=== PATIENT | female | born 1960 | race American Indian/Alaskan Native ===

== ENCOUNTER 2016-10-24 07:32 | Outpatient (CLI) | payer BC ==
--- NOTE | 2016-10-24 09:20 | Mammography Report ---
Bilateral mammogram: Compared to 09/24/15. CAD study utilized. Findings: Predominance interstitial bilaterally. Benign densities right and left breast without definite interval change. New 4 mm circumscribed density upper posterior right breast. Impression: New density upper posterior right breast. Recommend spot mag since the last examination. BI-RADS CATEGORY: 0 = Needs additional imaging evaluation ACR BI-RADS MAMMOGRAPHIC CODES: 0 = Needs additional imaging evaluation; 1 = Negative; 2 = Benign; 3 = Probably benign; 4 = Suspicious; 5 = Malignant; 6 = Known biopsy-proven malignancy COMMENT: 1. Dense breast tissue, i.e., adenosis, fibrocystic changes, etc., may obscure an underlying neoplasm. 2. Approximately 10% of cancers are not detected with mammography. 3. A negative mammography report should not delay biopsy if a clinically suspicious mass is present. COMMENT: Patient follow-up letters are generated in [employer].
== END 2016-10-24 07:33 | disposition home or self-care (01) ==
LOC: MAMMO 07:32
PROVIDERS: ATTEND Internal Medicine
DX: Z12.31 Encounter for screening mammogram for malignant neoplasm of breast (principal)
CPT/HCPCS: 77067; G0202

== ENCOUNTER 2016-11-06 08:08 | Outpatient (CLI) | payer BC ==
--- NOTE | 2016-11-06 09:51 | Mammography Report ---
Diagnostic right mammogram and targeted right breast ultrasound. History: Nodular asymmetry in the upper-outer quadrant seen on recent screening study. Findings: A spot compression image in the area of interest demonstrates almost complete effacement of the asymmetric density. Sonographic evaluation of this area demonstrates no evidence of a cystic or solid lesion. Impression: No definite significant findings. BI-RADS code: 3. Recommendation: A repeat mammogram and possible ultrasound are recommended in 6 months.
== END 2016-11-06 08:09 | disposition home or self-care (01) ==
LOC: MAMMO 08:08
PROVIDERS: ATTEND Internal Medicine
DX: R92.8 Other abnormal and inconclusive findings on diagnostic imaging of breast (principal)
CPT/HCPCS: 76642; G0206

== ENCOUNTER 2017-05-14 09:03 | Outpatient (CLI) | payer BC ==
--- NOTE | 2017-05-14 09:52 | Mammography Report ---
RIGHT DIGITAL DIAGNOSTIC MAMMOGRAM with CAD: 05/14/17 09:03:00 CLINICAL: Follow-up asymmetry. COMPARISON:11/06/16 and 10/24/16 FINDINGS: The breast is predominantly fatty with a few stable benign-appearing right axillary lymph nodes. What was described as a nodular asymmetry in the upper-outer quadrant is a stable lymph node. No mass, architectural distortion or suspicious calcifications. IMPRESSION: No mammographic evidence of malignancy. BI-RADS CATEGORY: 2 - - Benign RECOMMENDATION: Return to routine mammographic screening. ACR BI-RADS MAMMOGRAPHIC CODES: 0 = Needs additional imaging evaluation; 1 = Negative; 2 = Benign; 3 = Probably benign; 4 = Suspicious; 5 = Malignant; 6 = Known biopsy-proven malignancy COMMENT: 1. Dense breast tissue, i.e., adenosis, fibrocystic changes, etc., may obscure an underlying neoplasm. 2. Approximately 10% of cancers are not detected with mammography. 3. A negative mammography report should not delay biopsy if a clinically suspicious mass is present. COMMENT: Patient follow-up letters are generated by our [email or web address] application.
== END 2017-05-14 09:04 | disposition home or self-care (01) ==
LOC: MAMMO 09:03
PROVIDERS: ATTEND Internal Medicine
DX: R92.8 Other abnormal and inconclusive findings on diagnostic imaging of breast (principal)
CPT/HCPCS: G0206-RT

== ENCOUNTER 2017-06-07 04:43 | Emergency (ER) | payer BC ==
[2017-06-07 04:49] VITALS: BP 151/74
[2017-06-07 06:01] LABS: Bacteria,Urine 1+ /HPF (Negative); Bilirubin,Urine NEG (Negative); Blood,Urine SM (Negative); Ketones,Urine NEG (Negative); Leukocyte Esterase,Urine LG (Negative); Mucus,Urine FEW /HPF; Nitrite,Urine NEG (Negative); Protein,Urine <15 mg/dL mg/dL (Negative); Urobilinogen,Urine < 2.0 mg/dL (<2.0)
[2017-06-07 06:08] LABS: WBC,Urine > 182.0 /HPF (0.0-6.0)
--- NOTE | 2017-06-07 06:18 | Emergency Department Report ---
ED Female HPI - General Chief complaint: Urogenital-Female Stated complaint: VAG D/C Time Seen by Provider: 06/07/17 05:38 Source: patient Mode of arrival: Ambulatory Limitations: No Limitations - History of Present Illness Initial comments: Patient states that she has had vaginal itching and irritation for the past week and it has worsened with time and is worse after urination; at onset of sxs , tried Monistat cream but it didn't help, so tried Monistat applicator yesterday but it didn't help either; also admits to noticing "cottage cheese" discharge; denies abdominal pain, N/V/D, dysuria, hematuria, changes in urinary frequency, fevers, and vaginal bleeding MD Complaint: vaginal discharge Onset/Timin -: week(s) Location: labia Radiation: non-radiating Severity: mild Severity scale (0 -10): 2 Quality: dull Consistency: intermittent Improves with: none Worsens with: urination Are you Now?: No Associated Symptoms: vaginal discharge. denies: vaginal bleeding, abdominal pain, nausea/vomiting, fever/chills, headaches, loss of appetite, dysuria, hematuria, rash, seizure, shortness of breath, syncope, weakness - Related Data Sexually active: Yes Home Medications Medication Instructions Recorded Confirmed Last Taken Bisoprolol/Hydrochlorothiazide 1 each PO DAILY 04/22/13 07/04/14 07/04/14 [Bisoprolol-Hctz 2.5-6.25 mg Tb] FLUoxetine [PROzac] 10 mg PO QDAY 04/22/13 07/04/14 07/03/14 Omeprazole [PriLOSEC] 10 mg PO DAILY 06/14/14 07/04/14 07/03/14 Previous Rx's Medication Instructions Recorded Last Taken Type Estradiol/Levonorgestrel [Climara 1 each TD 2XW #8 patch.tdwk 07/05/14 Unknown Rx Pro Patch] HYDROcodone/APAP 5-325 [[place] 2 each PO Q4H PRN #30 tablet 07/05/14 Unknown Rx 5-325 mg TAB] Ibuprofen [Motrin 800 MG tab] 800 mg PO Q8H PRN #30 tablet 07/05/14 Unknown Rx Clotrimazole [3-Day Vaginal Cream] 21 gm VG QHS #1 cream.appl 06/07/17 Unknown Rx Sulfamethoxazole/Trimethoprim 1 each PO BID #20 tablet 06/07/17 Unknown Rx [Bactrim DS TAB] Allergies Allergy/AdvReac Type Severity Reaction Status Date / Time No Known Allergies Allergy Verified 04/22/13 15:18 ED Review of Systems ROS: Stated complaint: VAG D/C Other details as noted in HPI Constitutional: denies: chills, fever Respiratory: denies: cough, shortness of breath, SOB with exertion, SOB at rest Cardiovascular: denies: chest pain, palpitations Gastrointestinal: denies: abdominal pain, nausea, vomiting, diarrhea, constipation, hematemesis, melena, hematochezia Genitourinary: discharge. denies: urgency, dysuria, frequency, hematuria, abnormal menses, dyspareunia Musculoskeletal: denies: back pain Skin: denies: rash Neurological: denies: headache, weakness ED Past Medical Hx - Past Medical History Hx Hypertension: Yes Hx Congestive Heart Failure: No Hx Diabetes: No Hx GERD: Yes (1999 RESOLVED WITH SURGERY 2000 RETURNED 2012) Hx Asthma: No Hx COPD: No Hx HIV: No Additional medical history: IBS, OBESITY - Surgical History Hx Cholecystectomy: Yes (2000) Additional Surgical History: Hysterectomy, LAP BAND, - Social History Smoking Status: Never Smoker Substance Use Type: None - Medications Home Medications: Home Medications Medication Instructions Recorded Confirmed Last Taken Type Bisoprolol/Hydrochlorothiazide 1 each PO DAILY 04/22/13 07/04/14 07/04/14 History [Bisoprolol-Hctz 2.5-6.25 mg Tb] FLUoxetine [PROzac] 10 mg PO QDAY 04/22/13 07/04/14 07/03/14 History Omeprazole [PriLOSEC] 10 mg PO DAILY 06/14/14 07/04/14 07/03/14 History Estradiol/Levonorgestrel [[place] 1 each TD 2XW #8 patch.tdwk 07/05/14 Unknown Rx Pro Patch] HYDROcodone/APAP 5-325 [[place] 2 each PO Q4H PRN #30 tablet 07/05/14 Unknown Rx 5-325 mg TAB] Ibuprofen [Motrin 800 MG tab] 800 mg PO Q8H PRN #30 tablet 07/05/14 Unknown Rx Clotrimazole [3-Day Vaginal Cream] 21 gm VG QHS #1 cream.appl 06/07/17 Unknown Rx Sulfamethoxazole/Trimethoprim 1 each PO BID #20 tablet 06/07/17 Unknown Rx [Bactrim DS TAB] ED Physical Exam - General Limitations: No Limitations General appearance: alert, in no apparent distress, obese - Head Head exam: Present: atraumatic, normocephalic, normal inspection - Respiratory Respiratory exam: Present: normal lung sounds bilaterally. Absent: respiratory distress, wheezes, rales, rhonchi, stridor - Cardiovascular Cardiovascular Exam: Present: regular rate, normal rhythm, normal heart sounds - GI/Abdominal GI/Abdominal exam: Present: soft. Absent: tenderness, guarding, rebound, rigid - External exam: Present: swelling (bilateral labia edematous, mildly TTP, no external bleeding), other (Senior Hydrogeologist present). Absent: lesions Speculum exam: Present: vaginal discharge (white, thick "cottage cheese-like" discharge present). Absent: erythema, cervical discharge, vaginal bleeding Bi-manual exam: Present: normal bi-manual exam. Absent: cervical motion tendernes, adnexal tenderness, adnexal mass, uterine enlargement, uterine tenderness - Neurological Exam Neurological exam: Present: alert, oriented X3, normal gait - Psychiatric Psychiatric exam: Present: normal affect, normal mood - Skin Skin exam: Present: warm, dry, intact, normal color, vesicles. Absent: rash, erythema ED Course Vital Signs 06/07/17 06/07/17 04:46 04:54 Temperature 98.1 F 98.1 F Pulse Rate 63 60 Respiratory 18 16 Rate Blood Pressure 151/74 151/74 O2 Sat by Pulse 97 97 Oximetry ED Medical Decision Making - Medical Decision Making Discussed results with patient; told her to complete the ABX, will culture urine , follow up with PCP if sxs don't improve, she verbalized understanding Critical care attestation.: If time is entered above; I have spent that time in minutes in the direct care of this critically ill patient, excluding procedure time. ED Disposition Clinical Impression: Urinary tract infection Qualifiers: Urinary tract infection type: acute cystitis Hematuria presence: with hematuria Qualified Code(s): N30.01 - Acute cystitis with hematuria Disposition: TO HOME OR SELFCARE Is pt being admited?: No Condition: Stable Instructions: Urinary Tract Infection in Women (ED), Vulvovaginal Candidiasis ( ED) Prescriptions: Clotrimazole [3-Day Vaginal Cream] 21 gm VG QHS #1 cream.appl Sulfamethoxazole/Trimethoprim [Bactrim DS TAB] 1 each PO BID #20 tablet Referrals: PRIMARY CARE, [Primary Care Provider] - 3-5 Days Time of Disposition: 07:26 Print Language: BELARUSIAN
== END 2017-06-07 07:43 | disposition home or self-care (01) ==
LOC: ED 04:43
DX: N30.01 Acute cystitis with hematuria (principal); I10 Essential (primary) hypertension; K21.9 Gastro-esophageal reflux disease without esophagitis
CPT/HCPCS: 81001; 87086; 87210; 87591; 99284

== ENCOUNTER 2017-10-26 07:36 | Outpatient (CLI) | payer BC ==
--- NOTE | 2017-10-27 13:45 | Mammography Report ---
BILATERAL DIGITAL SCREENING MAMMOGRAM with CAD: 10/26/17 07:36:00 CLINICAL: Routine screening. COMPARISON:10/24/16 FINDINGS: The breasts are almost entirely fatty. No mass, architectural distortion or suspicious calcifications. IMPRESSION: No mammographic evidence of malignancy. BI-RADS CATEGORY: 2 -- Benign RECOMMENDATION: Routine mammographic screening in one year. COMMENT: Patient follow-up letters are generated by our [employer] application.
== END 2017-10-26 07:37 | disposition home or self-care (01) ==
LOC: MAMMO 07:36
PROVIDERS: ATTEND Internal Medicine
DX: Z12.31 Encounter for screening mammogram for malignant neoplasm of breast (principal); I10 Essential (primary) hypertension
CPT/HCPCS: 77067

== ENCOUNTER 2019-04-01 08:25 | Outpatient (CLI) | payer BC ==
[2019-04-01 08:58] LABS: Basophils % (Auto) 0.5 % (0.0-1.8); Eosinophils # (Auto) 0.1 K/mm3 (0.0-0.4); Eosinophils % (Auto) 1.3 % (0.0-4.3); Hematocrit 37.1 % (30.3-42.9); Hemoglobin 12.3 gm/dl (10.1-14.3); Lymphocytes # (Auto) 2.7 K/mm3 (1.2-5.4); Lymphocytes % (Auto) 29.6 % (13.4-35.0); Mean Corpuscular HGB Conc 33 % (30-34); Mean Corpuscular Volume 83 fl (79-97); Monocytes # (Auto) 0.6 K/mm3 (0.0-0.8); Monocytes % (Auto) 6.9 % (0.0-7.3); Platelet Count 387 K/mm3 (140-440); Red Blood Count 4.49 M/mm3 (3.65-5.03); Red Cell Distribution Width 14.8 % (13.2-15.2)
[2019-04-01 09:18] LABS: Alanine Aminotransferase 19 units/L (7-56); Albumin 3.8 g/dL (3.9-5); BUN/Creatinine Ratio 20; Blood Urea Nitrogen 14 mg/dL (7-17); Calcium 9.3 mg/dL (8.4-10.2); Chol/HDL Ratio 2.21 %; HDL Cholesterol 71 mg/dL (40-59); Hemolysis Index 5; LDL Cholesterol,Direct 94 mg/dL (50-130)
== END 2019-04-01 08:26 | disposition home or self-care (01) ==
LOC: LAB 08:25
PROVIDERS: ATTEND Internal Medicine
DX: Z13.220 Encounter for screening for lipoid disorders (principal); I10 Essential (primary) hypertension; K21.9 Gastro-esophageal reflux disease without esophagitis; F32.9 Major depressive disorder, single episode, unspecified
CPT/HCPCS: 36415; 80053; 80061; 85025

== ENCOUNTER 2019-04-12 08:10 | Outpatient (CLI) | payer BC ==
--- NOTE | 2019-04-12 14:45 | Mammography Report ---
DIGITAL SCREENING MAMMOGRAM WITH CAD, 04/12/2019 INDICATION: Routine screening mammography. TECHNIQUE: Digital bilateral 2D mammography was obtained in the craniocaudal and mediolateral obliq ue projections. This examination was interpreted with the benefit of Computer-Aided Detection analysi s. COMPARISON: 10/26/2017 FINDINGS: Breast Density: There are scattered areas of fibroglandular density. There is no evidence of dominant mass, suspicious calcifications or architectural distortion in eithe r breast. IMPRESSION: No mammographic evidence of malignancy. Follow up recommendation: Routine yearly BI-RADS Category 1: Negative. A "normal" or negative report should not discourage follow up or biopsy of a clinically significant f inding. A written summary of these findings will be mailed to the patient. The patient will be entered into a mammography reporting system which will generate a reminder letter for the patient's next appointmen t at the appropriate interval. The [employer] recommends yearly mammograms starting at age 40 and continuing as l adam as a woman is in good health. Breast MRI is recommended for women with an approximate 20-25% or greater lifetime risk of breast cancer, including women with a strong family history of breast or ova keven cancer or who have been treated for Hodgkin's disease. Signer Name: Mohsen Diop MD Signed: 04/12/2019 2:40 PM Workstation Name: [id number]
--- NOTE | 2019-04-12 16:25 | Mammography Report ---
BONE DEXA CLINICAL: Postmenopausal. Status post LAP band procedure. TECHNIQUE: 2 site bone DEXA performed on an Hologic scanner. The lumbar spine was not scanned because of the LAP band producing opacity over the L-spine. FINDINGS: The average BMD of the right hip is 0.904g/cm squared with a T score of -0.3 and a Z score of -0.2. The average total BMD of the right forearm is 0.591 g/cm squared with a T score of +0.5and a Z score of +1.6. IMPRESSION: 1. WHO classification: Normal with average fracture risk based on right hip and right forearm measure ments. RECOMMENDATION: Clinical correlation and routine screening. Definitions: BMD equal bone mineral density T score = BMD related to peak bone mass of young adult ([place] expressed an standard deviation) Z score = age-matched BMD expressed in SD World health organization (WHO) diagnostic criteria Normal T score greater than equal to 1 standard deviation Osteopenia T score between -1 and -2.4 standard deviation Osteoporosis T score -2.5 standard deviation or below. Note: BMD is not the only risk factor for fracture; also consider factors such as the patient's age, risk of falling, previous osteoporotic fracture, family history of osteoporotic fractures, current sm oker and low body weight. Z scores are not calculated if greater than 80 years of age. Signer Name: Mohsen Diop MD Signed: 04/12/2019 4:20 PM Workstation Name: [id number]
== END 2019-04-12 08:11 | disposition home or self-care (01) ==
LOC: MAMMO 08:10
PROVIDERS: ATTEND Internal Medicine
DX: Z12.31 Encounter for screening mammogram for malignant neoplasm of breast (principal); I10 Essential (primary) hypertension; K21.9 Gastro-esophageal reflux disease without esophagitis; E66.9 Obesity, unspecified; Z78.0 Asymptomatic menopausal state; Z90.710 Acquired absence of both cervix and uterus
CPT/HCPCS: 77067; 77080

== ENCOUNTER 2019-09-02 06:53 | Outpatient (CLI) | payer BC ==
--- NOTE | 2019-09-02 08:50 | Fluoroscopy Report ---
UPPER GI HISTORY: BARIATRIC SURGERY STATUS. Gastroesophageal reflux, bloating TECHNIQUE: Single and double contrast barium technique utilized to evaluate the esophagus, stomach, and duodenal C-loop. FINDINGS: To begin the exam, swallowing was evaluated in the lateral position under direct fluorosco py. Swallowing was normal. The esophagus is normal caliber and mucosal pattern throughout. There is no evidence for mucosal lesi on or hiatal hernia. There did appear to be delayed emptying of the esophagus with occasional tertiar y contractions. This did not appear to be secondary to the lap band device. A lap band device is noted in the left upper quadrant and appears in good position. There is easy pa ssage of the contrast agent through the lap band. The gastric cavity, duodenal bulb and duodenal swee p are normal. No episodes of gastroesophageal reflux were witnessed during this exam. There did appea r to be decreased gastric motility. IMPRESSION: A lap band appears in good position with no evidence for slippage or erosion. Dysmotilit y was suspected throughout this exam. Occasional tertiary contractions in the esophagus and poor shyann skye motility was witnessed. No episodes of reflux were witnessed. Fluoroscopic time: 2.3 minutes Number of fluoroscopic images: 34 Signer Name: Guille Plummer Jr, MD Signed: 09/02/2019 8:46 AM Workstation Name: [id number]
== END 2019-09-02 06:54 | disposition home or self-care (01) ==
LOC: FLUORO 06:53
PROVIDERS: ATTEND Surgery
DX: Z98.84 Bariatric surgery status (principal)
CPT/HCPCS: 74246

== ENCOUNTER 2020-02-15 06:06 | Outpatient (CLI) | payer BC ==
[2020-02-15 07:25] LABS: Basophils % (Auto) 0.4 % (0.0-1.8); Eosinophils # (Auto) 0.1 K/mm3 (0.0-0.4); Eosinophils % (Auto) 1.2 % (0.0-4.3); Hematocrit 37.6 % (30.3-42.9); Hemoglobin 12.1 gm/dl (10.1-14.3); Lymphocytes % (Auto) 28.1 % (13.4-35.0); Mean Corpuscular HGB Conc 32 % (30-34); Mean Corpuscular Volume 88 fl (79-97); Monocytes # (Auto) 0.5 K/mm3 (0.0-0.8); Monocytes % (Auto) 6.6 % (0.0-7.3); Platelet Count 363 K/mm3 (140-440); Red Blood Count 4.29 M/mm3 (3.65-5.03); Red Cell Distribution Width 15.8 % (13.2-15.2)
[2020-02-15 07:54] LABS: Alanine Aminotransferase 14 units/L (7-56); Albumin 3.7 g/dL (3.9-5); BUN/Creatinine Ratio 21; Blood Urea Nitrogen 15 mg/dL (7-17); Calcium 9.2 mg/dL (8.4-10.2); Chol/HDL Ratio 2.54 %; HDL Cholesterol 68 mg/dL (40-59); Hemolysis Index 22; LDL Cholesterol,Direct 98 mg/dL (50-130)
== END 2020-02-15 06:07 | disposition home or self-care (01) ==
LOC: LAB 06:06
PROVIDERS: ATTEND Internal Medicine
DX: F32.9 Major depressive disorder, single episode, unspecified (principal); I10 Essential (primary) hypertension
CPT/HCPCS: 36415; 80053; 80061; 84443; 85025

== ENCOUNTER 2020-06-07 11:31 | Outpatient (CLI) | payer BC ==
--- NOTE | 2020-06-07 15:35 | Mammography Report ---
DIGITAL SCREENING MAMMOGRAM WITH CAD, 06/07/2020 CLINICAL INFORMATION / INDICATION: Routine screening mammography. TECHNIQUE: Digital bilateral 2D mammography was obtained in the craniocaudal and mediolateral obliqu e projections. This examination was interpreted with the benefit of Computer-Aided Detection analysis . COMPARISON: 04/12/2019 FINDINGS: Breast Density: There are scattered areas of fibroglandular density. No dominant mass, suspicious calcifications, or architectural distortion in either breast. IMPRESSION: No mammographic evidence of malignancy. Follow up recommendation: Routine yearly BI-RADS Category 1: Negative. A "normal" or negative report should not discourage follow up or biopsy of a clinically significant f inding. A written summary of these findings will be mailed to the patient. The patient will be entered into a mammography reporting system which will generate a reminder letter for the patient's next appointmen t at the appropriate interval. The [employer] recommends yearly mammograms starting at age 40 and continuing as l adam as a woman is in good health. Breast MRI is recommended for women with an approximate 20-25% or greater lifetime risk of breast cancer, including women with a strong family history of breast or ova keven cancer or who have been treated for Hodgkin's disease. Signer Name: Louie Harper MD Signed: 06/07/2020 3:31 PM Workstation Name: [id number]
== END 2020-06-07 11:32 | disposition home or self-care (01) ==
LOC: MAMMO 11:31
PROVIDERS: ATTEND Internal Medicine
DX: Z12.31 Encounter for screening mammogram for malignant neoplasm of breast (principal)
CPT/HCPCS: 77067

== ENCOUNTER 2020-12-04 07:05 | Day surgery (SDC) | payer BC ==
[2020-12-04 09:38] VITALS: BP 133/69
== END 2020-12-04 07:06 | disposition home or self-care (01) ==
LOC: GIO 07:05
PROVIDERS: ATTEND Internal Medicine Gastroenterology
DX: Z12.11 Encounter for screening for malignant neoplasm of colon (principal); K57.30 Diverticulosis of large intestine without perforation or abscess without bleeding; I10 Essential (primary) hypertension; K21.9 Gastro-esophageal reflux disease without esophagitis; E66.01 Morbid (severe) obesity due to excess calories; E66.9 Obesity, unspecified; F32.9 Major depressive disorder, single episode, unspecified; Z79.899 Other long term (current) drug therapy; Z90.49 Acquired absence of other specified parts of digestive tract; Z90.710 Acquired absence of both cervix and uterus; Z98.890 Other specified postprocedural states
CPT/HCPCS: 45378; J2704; J7030

== ENCOUNTER 2021-06-28 05:51 | Outpatient (CLI) | payer BC | END 2021-06-28 05:52 | disposition home or self-care (01) | LOC: MAMMO 05:51 | PROVIDERS: ATTEND Internal Medicine | DX: Z12.31 Encounter for screening mammogram for malignant neoplasm of breast (principal) | CPT/HCPCS: 77067 ==

== ENCOUNTER 2021-09-17 06:00 | Outpatient (CLI) | payer BC ==
[2021-09-17 07:11] LABS: Basophils # (Auto) 0.1 K/mm3 (0.0-0.1); Basophils % (Auto) 0.7 % (0.0-1.8); Eosinophils # (Auto) 0.1 K/mm3 (0.0-0.4); Eosinophils % (Auto) 1.6 % (0.0-4.3); Hematocrit 36.1 % (30.3-42.9); Hemoglobin 11.7 gm/dl (10.1-14.3); Lymphocytes % (Auto) 25.6 % (13.4-35.0); Mean Corpuscular HGB Conc 32 % (30-34); Mean Corpuscular Volume 81 fl (79-97); Monocytes # (Auto) 0.5 K/mm3 (0.0-0.8); Monocytes % (Auto) 5.8 % (0.0-7.3); Platelet Count 411 K/mm3 (140-440); Red Blood Count 4.44 M/mm3 (3.65-5.03); Red Cell Distribution Width 15.3 % (13.2-15.2)
[2021-09-17 07:25] LABS: Alanine Aminotransferase 12 units/L (7-56); Blood Urea Nitrogen 18 mg/dL (7-17); Calcium 9.5 mg/dL (8.4-10.2); Chol/HDL Ratio 2.33 %; HDL Cholesterol 81 mg/dL (40-59); Hemolysis Index 22; LDL Cholesterol,Direct 106 mg/dL (50-130)
[2021-09-17 07:30] LABS: BUN/Creatinine Ratio 26
== END 2021-09-17 06:01 | disposition home or self-care (01) ==
LOC: LAB 06:00
PROVIDERS: ATTEND Internal Medicine
DX: I10 Essential (primary) hypertension (principal)
CPT/HCPCS: 36415; 80053; 80061; 85025

== ENCOUNTER 2021-10-18 11:19 | Outpatient (CLI) | payer BC ==
--- NOTE | 2021-10-18 14:42 | Cat Scan Report ---
CT ABDOMEN AND PELVIS WITH CONTRAST HISTORY: R10.30 LOWER ABDOMINAL PAIN,UNSPECIFIED OMNI 300 100 ML. COMPARISON: None. TECHNIQUE: CT images of the abdomen and pelvis were obtained following administration of intravenous contrast. All CT scans at this location are performed using CT dose reduction for ALARA by means of automated exposure control. CONTRAST: 100 ml of intravenous contrast administered. FINDINGS: Lungs/bones: Lung bases are clear Abdomen/pelvis: There is diffuse fatty infiltration the liver. Spleen, adrenal glands, pancreas and upper GI tract appear normal. Postsurgical changes and upper GI tract. Prior cholecystectomy. Bilater al kidneys are normal in size and appearance. Small (devices seen overlying the umbilical region with tube extending into the left lower abdomen. Appendix appears normal. Constipation seen throughout th e colon. No free fluid is seen. No dominant adenopathy IMPRESSION: 1. Fatty infiltration the liver. 2. Postsurgical changes in the upper GI tract 3. Constipation Signer Name: Don Lange MD Signed: 10/18/2021 2:37 PM Workstation Name: [id number]
== END 2021-10-18 11:20 | disposition home or self-care (01) ==
LOC: CT 11:19
PROVIDERS: ATTEND Surgery
DX: K76.0 Fatty (change of) liver, not elsewhere classified (principal); K59.00 Constipation, unspecified; Z90.49 Acquired absence of other specified parts of digestive tract
CPT/HCPCS: 74177; Q9967

== ENCOUNTER 2022-01-23 13:09 | Outpatient (CLI) | payer BC ==
--- NOTE | 2022-01-23 14:39 | Magnetic Resonance Report ---
MRI LEFT ANKLE WITHOUT CONTRAST INDICATION / CLINICAL INFORMATION: EVAL LEFT ACHILLES TENDON. Ankle pain. TECHNIQUE: Multiplanar, multisequence MR images were obtained. No contrast used. COMPARISON: None available. FINDINGS: ACHILLES TENDON: Mild Achilles tendinosis and peritendinitis with edema in the pre-Achilles fat pad. No tear. PLANTAR FASCIA: Mild plantar fasciosis without acute inflammation. POSTERIOR TIBIAL / FLEXOR TENDONS: No significant abnormality. PERONEAL TENDONS: No significant abnormality. ANTERIOR TIBIAL / EXTENSOR TENDONS: No significant abnormality. ANTERIOR TALOFIBULAR LIGAMENT: Chronic sprain without acute abnormality. CALCANEOFIBULAR LIGAMENT: No significant abnormality. TIBIOFIBULAR LIGAMENTS: No significant abnormality. INTEROSSEOUS LIGAMENT / MEMBRANE: No significant abnormality. DELTOID LIGAMENTS: No significant abnormality. SPRING LIGAMENT COMPLEX: No significant abnormality. TIBIOTALAR JOINT SPACE: No chondrosis or articular cartilage defect. No significant joint effusion or synovitis. No intra-articular bodies. SUBTALAR JOINTS: No significant abnormality. SINUS TARSI: No significant abnormality. TARSAL TUNNEL: No significant abnormality. BONES / OTHER JOINTS: No significant bone marrow edema. No fracture. Mildly prominent posterior super ior process of the calcaneus. SOFT TISSUES: No significant abnormality. ADDITIONAL FINDINGS: None. IMPRESSION: 1. Mild Achilles tendinosis and peritendinitis with mild Belle deformity. No tendon tear. Signer Name: Anil Martin MD Signed: 01/23/2022 2:34 PM Workstation Name: [email or web address]
== END 2022-01-23 13:10 | disposition home or self-care (01) ==
LOC: MRI 13:09
PROVIDERS: ATTEND Orthopaedic Surgery Sports Medicine
DX: S93.492A Sprain of other ligament of left ankle, initial encounter (principal); M76.62 Achilles tendinitis, left leg; X58.XXXA Exposure to other specified factors, initial encounter; Y93.89 Activity, other specified; Y92.89 Other specified places as the place of occurrence of the external cause; Y99.8 Other external cause status
CPT/HCPCS: 73721

== ENCOUNTER 2022-04-17 09:12 | Emergency (ER) | payer BC ==
--- NOTE | 2022-04-17 11:03 | XRay Report ---
CHEST 1 VIEW 04/17/2022 10:58 AM INDICATION / CLINICAL INFORMATION: chest pain, sob. COMPARISON: 05/24/2018 FINDINGS: SUPPORT DEVICES: None. HEART / MEDIASTINUM: No significant abnormality. LUNGS / PLEURA: No significant pulmonary or pleural abnormality. No pneumothorax. ADDITIONAL FINDINGS: No significant additional findings. IMPRESSION: 1. No acute findings. Signer Name: Guille Plummer Jr, MD Signed: 04/17/2022 10:58 AM Workstation Name: [id number]
[2022-04-17 12:49] LABS: Blood Urea Nitrogen 15 mg/dL (7-17); Hemolysis Index 6
[2022-04-17 12:50] LABS: Hematocrit 39.6 % (30.3-42.9); Hemoglobin 12.6 gm/dl (10.1-14.3); Mean Corpuscular HGB Conc 32 % (30-34); Mean Corpuscular Volume 83 fl (79-97); Platelet Count 462 K/mm3 (140-440); Red Blood Count 4.77 M/mm3 (3.65-5.03); Red Cell Distribution Width 15.3 % (13.2-15.2)
[2022-04-17 13:23] LABS: BUN/Creatinine Ratio 21
[2022-04-17 17:16] VITALS: BP 148/92
--- NOTE | 2022-04-17 18:28 | Vascular Lab Report ---
DUPLEX DOPPLER LOWER EXTREMITY VEINS, LEFT INDICATION / CLINICAL INFORMATION: Left calf pain and swelling. TECHNIQUE: Duplex doppler imaging was performed through the veins of the left lower extremity using v enous compression and other maneuvers. COMPARISON: None available. FINDINGS: LEFT COMMON FEMORAL VEIN: Negative. LEFT FEMORAL VEIN: Negative. LEFT POPLITEAL VEIN: Negative. LEFT CALF VEINS: Negative. ADDITIONAL FINDINGS: None. IMPRESSION: 1. No sonographic evidence for DVT in the left lower extremity. Signer Name: Louie Harper MD Signed: 04/17/2022 6:24 PM Workstation Name: [id number]
[2022-04-17] MEDS ORDERED: KETOROLAC 30 MG/1 ML INJ IM ONE (18:45)
[2022-04-17] MEDS ORDERED: CYCLOBENZAPRINE 10 MG TAB PO ONE (18:45)
--- NOTE | 2022-04-17 19:15 | Emergency Department Report ---
ED Chest Pain HPI - General Chief Complaint: Chest Pain Stated Complaint: CHEST PAIN Time Seen by Provider: 04/17/22 16:41 Source: patient Mode of arrival: Ambulatory Limitations: No Limitations - History of Present Illness Initial Comments: 61-year-old female history of hypertension, GERD, depression, presents to the emergency department with chest pain. Patient reports has been experiencing substernal chest pain since last Thursday, describes her pain as intermittent, radiating to her left breast. States the pain comes and goes, not worsened by anything or triggered by anything. She describes the pain as sharp, does not radiate to the extremities, does not radiate to her neck, does not cause headache dizziness or vision changes, does not cause shortness of breath, does not cause nausea vomiting abdominal pain. She denies any recent travel, she denies history of prior pain, she denies PEs or DVTs, she denies history of heart failure. No orthopnea, no edema. Also complaining of pain in her left calf. States she has been experiencing the pain in the left calf since she had the cast to remove post tendon injury. States symptoms are worse when she walks, and she notices that it would occasionally swell up. She denies numbness or tingling, patient has not followed up since the accident occurred. MD Complaint: chest pain -: Gradual Severity scale (0 -10): 3 - Related Data Home Medications Medication Instructions Recorded Confirmed Last Taken Bisoprolol/Hydrochlorothiazide 1 each PO DAILY 04/22/13 07/04/14 07/04/14 [Bisoprolol-Hctz 2.5-6.25 mg Tb] FLUoxetine [PROzac] 10 mg PO QDAY 04/22/13 07/04/14 07/03/14 Omeprazole [PriLOSEC] 10 mg PO DAILY 06/14/14 07/04/14 07/03/14 Previous Rx's Medication Instructions Recorded Last Taken Type Estradiol/Levonorgestrel [Climara 1 each TD 2XW #8 patch.tdwk 07/05/14 Unknown Rx Pro Patch] Clotrimazole [3-Day Vaginal Cream] 21 gm VG QHS #1 cream.appl 06/07/17 Unknown Rx Cyclobenzaprine [Flexeril 10 MG 10 mg PO TID PRN #20 tablet 04/17/22 Unknown Rx TAB] Naproxen [Naprosyn] 375 mg PO BID PRN #20 tablet 04/17/22 Unknown Rx Omeprazole 20 mg PO QHS #30 04/17/22 Unknown Rx Allergies Allergy/AdvReac Type Severity Reaction Status Date / Time No Known Allergies Allergy Verified 04/22/13 15:18 Heart Score - HEART Score History: Slightly suspicious EKG: Normal Age: 45-65 Risk factors: 1-2 risk factors Troponin: < normal limit HEART Score: 2 - EKG Read Time Time EKG Completed: 09:19 EKG Read Time: 09:20 ED Review of Systems ROS: Stated complaint: CHEST PAIN Other details as noted in HPI Eyes: as per HPI ENT: as per HPI Respiratory: denies: cough, orthopnea, shortness of breath Cardiovascular: chest pain Endocrine: denies: see HPI Genitourinary: denies: urgency Musculoskeletal: denies: back pain Skin: denies: rash Neurological: denies: headache Psychiatric: depression. denies: anxiety, auditory hallucinations, visual wade ucinations ED Past Medical Hx - Past Medical History Hx Hypertension: Yes Hx Congestive Heart Failure: No Hx Diabetes: No Hx GERD: Yes (1999 RESOLVED WITH SURGERY 2000 RETURNED 2012) Hx HIV: No Additional medical history: IBS, OBESITY - Surgical History Hx Cholecystectomy: Yes (2000) Additional Surgical History: Hysterectomy, LAP BAND, - Social History Smoking Status: Never Smoker Substance Use Type: None - Medications Home Medications: Home Medications Medication Instructions Recorded Confirmed Last Taken Type Bisoprolol/Hydrochlorothiazide 1 each PO DAILY 04/22/13 07/04/14 07/04/14 History [Bisoprolol-Hctz 2.5-6.25 mg Tb] FLUoxetine [PROzac] 10 mg PO QDAY 04/22/13 07/04/14 07/03/14 History Omeprazole [PriLOSEC] 10 mg PO DAILY 06/14/14 07/04/14 07/03/14 History Estradiol/Levonorgestrel [Climara 1 each TD 2XW #8 patch.tdwk 07/05/14 Unknown Rx Pro Patch] Clotrimazole [3-Day Vaginal Cream] 21 gm VG QHS #1 cream.appl 06/07/17 Unknown Rx Cyclobenzaprine [Flexeril 10 MG 10 mg PO TID PRN #20 tablet 04/17/22 Unknown Rx TAB] Naproxen [Naprosyn] 375 mg PO BID PRN #20 tablet 04/17/22 Unknown Rx Omeprazole 20 mg PO QHS #30 04/17/22 Unknown Rx ED Physical Exam - General Limitations: No Limitations General appearance: alert, in no apparent distress - Head Head exam: Present: atraumatic - Eye Eye exam: Present: normal appearance - ENT ENT exam: Present: normal exam, normal orophraynx - Neck Neck exam: Present: normal inspection. Absent: tenderness - Respiratory Respiratory exam: Present: normal lung sounds bilaterally. Absent: respiratory distress, chest wall tenderness - Cardiovascular Cardiovascular Exam: Present: regular rate, normal rhythm, normal heart sounds - GI/Abdominal GI/Abdominal exam: Present: soft - Extremities Exam Extremities exam: Present: normal inspection, full ROM, calf tenderness. Absent: pedal edema, joint swelling - Back Exam Back exam: Present: normal inspection, full ROM - Neurological Exam Neurological exam: Present: alert, oriented X3, CN II-XII intact, normal gait - Skin Skin exam: Present: warm, dry, intact, normal color ED Course Vital Signs 04/17/22 04/17/22 09:13 17:13 Temperature 98.3 F 98.0 F Pulse Rate 69 70 Respiratory 20 18 Rate Blood Pressure 148/92 Blood Pressure 165/89 148/92 [Right] O2 Sat by Pulse 100 98 Oximetry GAVIN score - Gavin Score Age > 65: (0) No Aspirin use within the Past 7 Days: (0) No 3 or more CAD Risk Factors: (0) No 2 or more Angina events in past 24 hrs: (0) No Known CAD with more than 50% Stenosis: (0) No Elevated Cardiac Markers: (0) No ST Deviation Greater than 0.5mm: (0) No GAVIN Score: 0 ED Medical Decision Making - Lab Data Result diagrams: 04/17/22 10:59 04/17/22 16:51 - EKG Data -: EKG Interpreted by Me EKG shows normal: sinus rhythm Rate: normal - EKG Data When compared to previous EKG there are: no significant change Interpretation: no acute changes, normal EKG - Radiology Data Radiology results: report reviewed - Medical Decision Making 61-year-old female history of hypertension, GERD, depression, presents to the emergency department with chest pain. Patient reports has been experiencing substernal chest pain since last Thursday, describes her pain as intermittent, radiating to her left breast. States the pain comes and goes, not worsened by anything or triggered by anything. She describes the pain as sharp, does not radiate to the extremities, does not radiate to her neck, does not cause headache dizziness or vision changes, does not cause shortness of breath, does not cause nausea vomiting abdominal pain. She denies any recent travel, she denies history of prior pain, she denies PEs or DVTs, she denies history of heart failure. No orthopnea, no edema. Also complaining of pain in her left calf. States she has been experiencing the pain in the left calf since she had the cast to remove post tendon injury. States symptoms are worse when she walks, and she notices that it would occasionally swell up. She denies numbness or tingling, patient has not followed up since the accident occurred. EKGs were taken at no sinus rhythm, normal intervals normal rate, rhythm. Serial troponin has been negative, chest pain is without nausea, vomiting, dizziness weakness, no shortness of breath, chest x-ray is also negative in clinic, and a D-dimer and ultrasound is also negative for acute findings. Heart score of 2, patient can be safely discharged home with referral to cardiology for further work-up including stress test and echo. Discussed all of this with patient including plan to follow-up, prescribed some naproxen for pa in as well as Flexeril, I also place patient on omeprazole in case GERD could be the cause of the pain. Patient remained stable nontoxic-appearing, afebrile, ambulating steadily without assistance. Gone over ED findings with patient as well as plan for follow-up. Also discussed return precautions with patient, all questions and concerns addressed. Patient is stable to be discharged follow-up outpatient. Audio voice dictation device used, hence the chart might contain some dictation errors, mispronunciations, wrong spelling and wrong verbiage. Critical care attestation.: If time is entered above; I have spent that time in minutes in the direct care of this critically ill patient, excluding procedure time. ED Disposition Clinical Impression: Chest pain Disposition: HOME / SELF CARE / HOMELESS Is pt being admited?: No Does the pt Need Aspirin: No Condition: Stable Instructions: Costochondritis Prescriptions: Omeprazole 20 mg PO QHS #30 Cyclobenzaprine [Flexeril 10 MG TAB] 10 mg PO TID PRN #20 tablet PRN Reason: Muscle Spasm Naproxen [Naprosyn] 375 mg PO BID PRN #20 tablet PRN Reason: Pain , Severe (7-10) Referrals: PRIMARY CARE, [Primary Care Provider] - 3-5 Days GIBRAN GRECO MD [Staff Physician] - 3-5 Days Forms: Work/School Release Form(ED)
--- NOTE | 2022-04-18 10:22 | Electrocardiograph Report ---
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
--- NOTE | 2022-04-18 10:33 | Electrocardiograph Report ---
[facility] Test Date: 2022-04-17 Test Time: 17:17:23 Pat Name: PHILLIP SILVERMAN Department: Room: Gender: F Hearing Therapist: 911 : 1960 Requested By: ASHELY CHAUDHRY Order Number: [id number] Reading MD: William Hernandez Measurements Intervals [place] Rate: 65 P: 43 ID: [id number] QRS: 17 QRSD: 83 T: 7 QT: 416 QTc: 432 Interpretive Statements Sinus rhythm Compared to ECG 04/17/2022 09:19:31 No significant changes Electronically Signed On 04-18-2022 10:32:43 EDT by William Hernandez
== END 2022-04-17 20:40 | disposition home or self-care (01) ==
LOC: ED 09:12
DX: R07.9 Chest pain, unspecified (principal); I10 Essential (primary) hypertension; Z90.49 Acquired absence of other specified parts of digestive tract
CPT/HCPCS: 36415; 71045; 80048; 84132; 84484; 85027; 85379; 93005; 93971; 96372; 99284; J1885